=== PATIENT | female | born 1950 | race Caucasian/White ===

== ENCOUNTER 2016-09-18 09:22 | Emergency (ER) | payer OTHER ==
[~2016-09-18] VITALS: Ht 167.6 cm; Wt 103.0 kg
[~2016-09-18 09:22] MED LIST: ASPI-664 PO; CALC500T12 PO; CIPR500T4 PO; GABA300C16 PO; HYDR-3498 PO; IBUP-1542 PO; Levofloxacin PO; MECL-77 PO; OMEP20CA16 PO; PHEN-537 PO; PROP20TA4 PO; SUMA50TA3 PO; TAMS-14 PO; TAMS0.4C2 PO
[2016-09-18 09:27] VITALS: Ht 167.6 cm; Wt 103.0 kg
[2016-09-18] MEDS ORDERED: SOD CHLORIDE 0.9% 1,000 ML IV STA (09:58)
[2016-09-18] MEDS ORDERED: morphine 4 MG/ML VIAL IV STA (09:58)
[2016-09-18] MEDS ORDERED: ONDANSETRON 4 MG INJ IV STA (09:58)
[2016-09-18 10:31] LABS: BASOPHILS % 0.6 % (0.0-2.0); EOSINOPHILS # 0.1 10^3/ul (0.0-0.5); EOSINOPHILS % 1.7 % (0.0-7.0); HEMATOCRIT 44.4 % (37.0-47.0); HEMOGLOBIN 15.1 g/dl (12.0-16.0); LYMPHOCYTES # 1.8 10^3/ul (0.8-2.9); LYMPHOCYTES % 33.6 % (15.0-51.0); MEAN CORPUSCULAR HEMOGLOBIN 30.4 pg (29.0-33.0); MEAN CORPUSCULAR HGB CONC 34.1 g/dl (32.0-37.0); MEAN PLATELET VOLUME 9.7 fl (7.4-10.4); MONOCYTE # 0.6 10^3/ul (0.3-0.9); MONOCYTES % 11.7 % (0.0-11.0); NEUTROPHIL # 2.8 10^3/ul (1.6-7.5); NEUTROPHILS % 52.4 % (39.0-77.0); PLATELET COUNT 240 10^3/UL (140-440); RED BLOOD COUNT 4.99 10^6/ul (4.20-5.40); UNCORRECTED WBC 5.4 10^3/ul (4.8-10.8); WHITE BLOOD COUNT 5.4 10^3/ul (4.8-10.8)
[2016-09-18 10:33] LABS: CONDITION 1
[2016-09-18 10:36] LABS: ALBUMIN 4.4 g/dl (3.3-4.9)
[2016-09-18 10:37] LABS: POTASSIUM 3.4 mmol/L (3.5-5.1)
[2016-09-18 10:38] LABS: CREATININE 1.12 mg/dl (0.44-1.00)
[2016-09-18 10:39] LABS: ALBUMIN/GLOBULIN RATIO 1.37; BILIRUBIN,INDIRECT 0.4 mg/dl (0-1.1); BILIRUBIN,TOTAL 0.4 mg/dl (0.2-1.3); TOTAL PROTEIN 7.6 g/dl (6.1-8.1)
[2016-09-18 10:40] LABS: CALCIUM 9.5 mg/dl (8.4-10.2)
[2016-09-18] MEDS ORDERED: HYDROmorphONE 1 MG/ML SYG IV STA (11:53)
[2016-09-18] MEDS ORDERED: ONDA4TAB14 PO (13:39)
[2016-09-18] MEDS ORDERED: HYDR-902 PO (13:39)
[2016-09-18 13:52] VITALS: BP 126/80; PULSE 65; RESP 18
--- NOTE | 2016-09-18 13:57 | ERD ---
ER Documentation Chief Complaint Date/Time DATE: 09/18/16 TIME: 13:55 Chief Complaint VOMITING/DIARRHEA WITH ABD PAIN SINCE SUNDAY HPI Patient is a 66-year-old female with no medical problems who presents with abdominal pain and vomiting. The patient has had nausea, vomiting, and diarrhea for the past 3 days. She has diffuse abdominal pain. She is vomiting even water. She had fever on the first day but none recently. She has had no treatment as of yet. She said the pain is been constant. Upon review of old medical records this is the patient's fourth visit to the ER since 2014. Her primary doctor is Dr. Ordonez. ROS All systems reviewed and are negative except as per history of present illness. Medications Home Meds Active Scripts Ondansetron (Ondansetron Odt) 4 Mg Tab.rapdis, 4 MG PO Q6H Y for NAUSEA AND/OR VOMITING, #30 TAB Prov:MARY JO LAWS MD 09/18/16 Hydrocodone/Acetaminophen ([place] 10-325 Tablet) 1 Each Tablet, 1 TAB PO Q6H Y for PAIN, #7 TAB Prov:MARY JO LAWS MD 09/18/16 Tamsulosin Hcl* (Flomax*) 0.4 Mg Cap.er.24h, 0.4 MG PO QPM, #10 CAP Prov:KARLA CHÁVEZ DO 05/24/15 Ibuprofen* (Motrin*) 600 Mg Tab, 600 MG PO Q6, #30 TAB Prov:KARLA CHÁVEZ DO 05/24/15 Hydrocodone Bit-Acetaminophen* ([place]*) 5-325 Mg Tab, 1 TAB PO Q6 Y for PAIN, # 20 TAB Prov:KARLA CHÁVEZ DO 05/24/15 Reported Medications Aspirin* (Aspirin* EC) 81 Mg Tablet.dr, 81 MG PO DAILY, TAB 07/25/15 Meclizine Hcl* (Meclizine Hcl*) 25 Mg Tablet, 25 MG PO Q8H Y for VERTIGO, TAB 07/25/15 Calcium Carbonate* (Oysco-500*) 1 Tab Tablet, 1 TAB PO BID, TAB 07/25/15 Gabapentin* (Gabapentin*) 300 Mg Capsule, 300 MG PO BID, #60 CAP 07/25/15 Propranolol Hcl* (Propranolol Hcl*) 20 Mg Tablet, 20 MG PO DAILY, TAB 07/25/15 Omeprazole* (Omeprazole*) 20 Mg Capsule.dr, 20 MG PO DAILY, #30 CAP 07/25/15 Sumatriptan Succinate* (Sumatriptan Succinate*) 50 Mg Tablet, 50 MG PO BID Y for HEADACHE, TAB May repeat after 2 hours if needed; MAX 200 mg/24 hours 07/25/15 Discontinued Reported Medications Tamsulosin Hcl* (Tamsulosin Hcl*) 0.4 Mg Cap.er.24h, 0.4 MG PO DAILY, CAP 07/25/15 Discontinued Scripts Phenazopyridine Hcl* (Pyridium*) 100 Mg Tab, 100 MG PO TID Y for URINARY PAIN for 3 Days, #9 TAB 0 Refills Prov:LIDIA DENSON PA-C 03/11/16 Ciprofloxacin Hcl* (Ciprofloxacin Hcl*) 500 Mg Tablet, 500 MG PO BID for 7 Days , #14 TAB 0 Refills Prov:LIDIA DENSON PA-C 03/11/16 [Levofloxacin] 500 MG TAB No Conflict Check, 500 MG PO DAILY@06 for 7 Days, TAB Prov:REN JONES MD 07/29/15 Allergies Allergies: Coded Allergies: No Known Allergy (Unverified , 05/24/15) PMhx/Soc History of Surgery: Yes (gallstones removal 3 yers ago. removal of kidney stone ) Anesthesia Reaction: No Hx Neurological Disorder: No Hx Respiratory Disorders: No Hx Cardiac Disorders: No Hx Psychiatric Problems: No Hx Miscellaneous Medical Probl: No Hx Alcohol Use: No Hx Substance Use: No Hx Tobacco Use: No Smoking Status: Never smoker FmHx Family History: No diabetes Physical Exam Vitals Vital Signs Date Time Temp Pulse Resp B/P Pulse Ox O2 Delivery O2 Flow Rate FiO2 09/18/16 13:52 65 18 126/80 98 Room Air 09/18/16 12:40 63 19 136/78 98 Room Air 09/18/16 09:27 98.0 103 18 118/78 99 Physical Exam Const: Mild distress secondary to pain Head: Atraumatic Eyes: Normal Conjunctiva ENT: Normal External Ears, Nose and Mouth. Neck: Full range of motion..~ No meningismus. Resp: Clear to auscultation bilaterally Cardio: Regular rate and rhythm, no murmurs Abd: Soft, non tender, non distended. Normal bowel sounds Skin: No petechiae or rashes Back: No midline or flank tenderness Ext: No cyanosis, or edema Neur: Awake and alert Psych: Normal Mood and Affect Result Diagram: 09/18/16 1005 09/18/16 1005 Results 24 hrs Laboratory Tests Test 09/18/16 10:05 Alanine Aminotransferase (ALT/SGPT) 45IU/L Albumin 4.4g/dl Albumin/Globulin Ratio 1.37 Alkaline Phosphatase 66IU/L Anion Gap 19 Aspartate Amino Transf (AST/SGOT) 38IU/L Basophils # 0.010^3/ul Basophils % 0.6% Blood Urea Nitrogen 21mg/dl Calcium Level 9.5mg/dl Carbon Dioxide Level 23mmol/L Chloride Level 104mmol/L Creatinine 1.12mg/dl Direct Bilirubin 0.00mg/dl Eosinophils # 0.110^3/ul Eosinophils % 1.7% Globulin 3.20g/dl Glucose Level 112mg/dl Hematocrit 44.4% Hemoglobin 15.1g/dl Indirect Bilirubin 0.4mg/dl Lipase 37U/L Lymphocytes # 1.810^3/ul Lymphocytes % 33.6% Mean Corpuscular Hemoglobin 30.4pg Mean Corpuscular Hemoglobin Concent 34.1g/dl Mean Corpuscular Volume 89.0fl Mean Platelet Volume 9.7fl Monocytes # 0.610^3/ul Monocytes % 11.7% Neutrophils # 2.810^3/ul Neutrophils % 52.4% Nucleated Red Blood Cells # 0.010^3/ul Nucleated Red Blood Cells % 0.0/100WBC Platelet Count 23293^3/UL Potassium Level 3.4mmol/L Red Blood Count 4.9910^6/ul Red Cell Distribution Width 13.0% Sodium Level 143mmol/L Total Bilirubin 0.4mg/dl Total Protein 7.6g/dl White Blood Count 5.410^3/ul Current Medications Medications (Trade) Dose Ordered Sig/Libra Route PRN Reason Start Time Stop Time Status Last Admin Dose Admin Sodium Chloride (NS) 1,000 ml @ 1,000 mls/hr Q1H STAT IV 09/18/16 09:58 09/18/16 10:57 DC 09/18/16 10:19 Morphine Sulfate (morphine) 4 mg ONCE STAT IV 09/18/16 09:58 09/18/16 09:59 DC 09/18/16 10:18 Ondansetron HCl (Zofran Inj) 4 mg ONCE STAT IV 09/18/16 09:58 09/18/16 09:59 DC 09/18/16 10:18 Hydromorphone HCl (Dilaudid) 1 mg ONCE STAT IV 09/18/16 11:53 09/18/16 11:55 DC 09/18/16 11:59 Procedures/MDM Patient is a 66-year-old female with no medical problems who presents with abdominal pain along with vomiting and diarrhea. I believe her symptoms are most likely viral in nature. Laboratory studies are basically normal. Her abdominal exam is benign and there is no pain with palpation. At this point I doubt appendicitis, cholecystitis, pink otitis, or bowel obstruction. I believe outpatient management is appropriate. However the patient will need close follow-up with her primary doctor tomorrow morning for reevaluation. She can return sooner for any worsening symptoms. She will be given a prescription for [place] and Zofran for symptomatic relief. Departure Diagnosis: Primary Impression: Vomiting Vomiting type: unspecified Vomiting Intractability: non-intractable Nausea presence: with nausea Qualified Code: R11.2 - Non-intractable vomiting with nausea, unspecified vomiting type Additional Impression: Abdominal pain Abdominal location: generalized Qualified Code: R10.84 - Generalized abdominal pain Condition: Fair Patient Instructions: Abdominal Pain, Vomiting And Diarrhea, Nonspecific (Adult ) Additional Instructions: FOLLOW UP WITH YOUR PRIMARY CARE PHYSICIAN TOMORROW.Return to this facility if you are not improving as expected. MARY JO LAWS MD Sep 18, 2016 13:57
== END 2016-09-18 13:54 | disposition home or self-care (01) ==
LOC: E/R 09:22
DX: R11.2 Nausea with vomiting, unspecified (principal); R10.84 Generalized abdominal pain; Z79.82 Long term (current) use of aspirin
CPT/HCPCS: 36415; 80053; 83690; 85025; 87400; 96374; 96375; J1170; J2270; J2405; J7030; Z7502

== ENCOUNTER 2017-04-10 11:38 | Emergency (ER) | payer OTHER ==
[~2017-04-10] VITALS: Wt 111.0 kg
[~2017-04-10 11:38] MED LIST changes: -CIPR500T4 PO; +HYDR-902 PO; -Levofloxacin PO; +ONDA4TAB14 PO; -PHEN-537 PO; -TAMS0.4C2 PO
--- NOTE | 2017-04-10 13:15 | ERD ---
ER Documentation Chief Complaint Date/Time DATE: 04/10/17 TIME: 13:13 Chief Complaint back pain HPI 66-year-old female who presented with emergency department for lower back pain for 10 days. Pain got worse today. Stated that she has history of left-sided kidney stone. Denies headache, dizziness, neck pain, shoulder pain, chest pain , abdominal pain, nausea, vomiting, loss of bowel and bladder control, numbness or tingling sensation, trauma, recent travel, recent exposure to any illness, recent antibiotic use in the last 3 months, numbness or tingling sensation. No known drug allergies. Past medical history of left-sided kidney stone and chronic back pain. Surgical history: Stated that she had a laparoscopic procedure to remove a kidney stone. Social: Retired. Denies smoking, use of alcoholic beverages, use of illegal drugs. A 0. ROS All systems reviewed and are negative except as per history of present illness. Medications Home Meds Active Scripts Cyclobenzaprine Hcl* (Cyclobenzaprine Hcl*) 10 Mg Tablet, 10 MG PO Q12 Y for muscle spasms, #20 TAB Prov:PEG MORALES 04/10/17 Acetaminophen* (Tylophen*) 500 Mg Capsule, 1 CAP PO Q6H Y for PAIN AND OR ELEVATED TEMP, #20 CAP Prov:MADAYPEG HERNADEZ F 04/10/17 Cephalexin* (Keflex*) 500 Mg Capsule, 500 MG PO TID for 7 Days, CAP Prov:NESSAHUSSEINLIZETHRAVIN F 04/10/17 Ondansetron (Ondansetron Odt) 4 Mg Tab.rapdis, 4 MG PO Q6H Y for NAUSEA AND/OR VOMITING, #30 TAB Prov:MARY JO LAWS MD 09/18/16 Hydrocodone/Acetaminophen (Zenda 10-325 Tablet) 1 Each Tablet, 1 TAB PO Q6H Y for PAIN, #7 TAB Prov:MARY JO LAWS MD 09/18/16 Tamsulosin Hcl* (Flomax*) 0.4 Mg Cap.er.24h, 0.4 MG PO QPM, #10 CAP Prov:KARLA CHÁVEZ DO 05/24/15 Ibuprofen* (Motrin*) 600 Mg Tab, 600 MG PO Q6, #30 TAB Prov:KARLA CHÁVEZ DO 05/24/15 Hydrocodone Bit-Acetaminophen* (Zenda*) 5-325 Mg Tab, 1 TAB PO Q6 Y for PAIN, # 20 TAB Prov:KARLA CHÁVEZ DO 05/24/15 Reported Medications Aspirin* (Aspirin* EC) 81 Mg Tablet.dr, 81 MG PO DAILY, TAB 07/25/15 Meclizine Hcl* (Meclizine Hcl*) 25 Mg Tablet, 25 MG PO Q8H Y for VERTIGO, TAB 07/25/15 Calcium Carbonate* (Oysco-500*) 1 Tab Tablet, 1 TAB PO BID, TAB 07/25/15 Gabapentin* (Gabapentin*) 300 Mg Capsule, 300 MG PO BID, #60 CAP 07/25/15 Propranolol Hcl* (Propranolol Hcl*) 20 Mg Tablet, 20 MG PO DAILY, TAB 07/25/15 Omeprazole* (Omeprazole*) 20 Mg Capsule.dr, 20 MG PO DAILY, #30 CAP 07/25/15 Sumatriptan Succinate* (Sumatriptan Succinate*) 50 Mg Tablet, 50 MG PO BID Y for HEADACHE, TAB May repeat after 2 hours if needed; MAX 200 mg/24 hours 07/25/15 Allergies Allergies: Coded Allergies: No Known Allergy (Unverified , 05/24/15) PMhx/Soc History of Surgery: Yes (gallstones removal 3 yers ago. removal of kidney stone ) Anesthesia Reaction: No Hx Neurological Disorder: No Hx Respiratory Disorders: No Hx Cardiac Disorders: No Hx Psychiatric Problems: No Hx Miscellaneous Medical Probl: No Hx Alcohol Use: No Hx Substance Use: No Hx Tobacco Use: No Physical Exam Vitals Vital Signs Date Time Temp Pulse Resp B/P Pulse Ox O2 Delivery O2 Flow Rate FiO2 04/10/17 11:54 98.6 80 18 149/70 99 Physical Exam Const: [] Head: Atraumatic Eyes: Normal Conjunctiva ENT: Normal External Ears, Nose and Mouth. Neck: Full range of motion..~ No meningismus. Resp: Clear to auscultation bilaterally Cardio: Regular rate and rhythm, no murmurs Abd: Soft, non tender, non distended. Normal bowel sounds. Left lower abdominal pain to palpation. Skin: No petechiae or rashes Back: No midline or flank tenderness Ext: No cyanosis, or edema. C-spine/T-spine/L-spine are in midline with no tenderness, no swelling, no bulging, no discoloration. C-spine/T-spine/L-spine is good and full range of motion. Has left-sided CVA tenderness to palpation. Positive arms crossed straight leg test bilaterally. Neur: Awake and alert Psych: Normal Mood and Affect Result Diagram: 04/10/17 1325 04/10/17 1325 Results 24 hrs Laboratory Tests Test 04/10/17 13:25 04/10/17 13:53 White Blood Count 8.010^3/ul Red Blood Count 4.3510^6/ul Hemoglobin 13.4g/dl Hematocrit 40.1% Mean Corpuscular Volume 92.2fl Mean Corpuscular Hemoglobin 30.8pg Mean Corpuscular Hemoglobin Concent 33.4g/dl Red Cell Distribution Width 11.9% Platelet Count 21078^3/UL Mean Platelet Volume 10.8fl Neutrophils % 46.1% Lymphocytes % 42.9% Monocytes % 6.5% Eosinophils % 3.4% Basophils % 0.9% Nucleated Red Blood Cells % 0.0/100WBC Neutrophils # (Manual) 3.710^3/ul Lymphocytes # 3.410^3/ul Monocytes # 0.510^3/ul Eosinophils # 0.310^3/ul Basophils # 0.110^3/ul Nucleated Red Blood Cells # 0.010^3/ul Prothrombin Time 13.3Sec Prothrombin Time Ratio 1.0 INR International Normalized Ratio 1.01 Activated Partial Thromboplast Time 32.3Sec Sodium Level 146mmol/L Potassium Level 4.0mmol/L Chloride Level 111mmol/L Carbon Dioxide Level 24mmol/L Anion Gap 15 Blood Urea Nitrogen 19mg/dl Creatinine 0.78mg/dl Glucose Level 91mg/dl Calcium Level 9.4mg/dl Total Bilirubin 0.3mg/dl Direct Bilirubin 0.00mg/dl Indirect Bilirubin 0.3mg/dl Aspartate Amino Transf (AST/SGOT) 24IU/L Alanine Aminotransferase (ALT/SGPT) 39IU/L Alkaline Phosphatase 62IU/L Troponin I < 0.012ng/ml Total Protein 7.3g/dl Albumin 4.3g/dl Globulin 3.00g/dl Albumin/Globulin Ratio 1.43 Amylase Level 58U/L Lipase 41U/L Urine Color YELLOW Urine Clarity SLIGHTLY CLOUDY Urine pH 5.0 Urine Specific [place] 1.024 Urine Ketones NEGATIVEmg/dL Urine Nitrite POSITIVEmg/dL Urine Bilirubin NEGATIVEmg/dL Urine Urobilinogen NEGATIVEmg/dL Urine Leukocyte Esterase 3+Tod/ul Urine Microscopic RBC 4/HPF Urine Microscopic WBC 104/HPF Urine Squamous Epithelial Cells FEW/HPF Urine Bacteria MODERATE/HPF Urine Mucus MODERATE/HPF Urine Hemoglobin 1+mg/dL Urine Glucose NEGATIVEmg/dL Urine Total Protein NEGATIVEmg/dl Current Medications Medications (Trade) Dose Ordered Sig/Libra Route PRN Reason Start Time Stop Time Status Last Admin Dose Admin Acetaminophen/ Hydrocodone Bitart (Zenda (22)) 1 tab ONCE ONCE PO 04/10/17 13:30 04/10/17 13:31 DC 04/10/17 13:26 Procedures/MDM Examination: Please see physical examination. Disease process, medical treatment was explained to the patient and family member. They verbalized understanding and agreed with the diagnostic tests, medical treatment, and follow-up care. EKG: Normal sinus rhythm with a ventricular rate of 64 bpm. No evidence of acute myocardial infarction. No evidence of ischemia. Radiology: CT of the abdomen and pelvis without IV contrast. Impression:Mild fatty liver. Status post cholecystectomy. Blood works: Reviewed. Urinalysis: Urinary tract infection. Treatment: Zenda by mouth. Re-evaluation: Denies headache, dizziness, blurry vision, neck pain, shoulder pain, chest pain, back pain, abdominal pain, nausea, vomiting. No episode of emesis in the emergency department. Alert and oriented 4. Speaks full and clear sentences. Respirations even and unlabored. Lung sounds clear to auscultation. Active bowel sounds. There is no right upper/right lower/ epigastric/left upper/left lower abdominal tenderness and light and deep palpation. Negative on Rovsings sign. Negative Julia sign. No peritoneal signs. Ambulatory with steady gait. No neurovascular deficits. No neurological deficits. Consultation: None. Differential diagnosis: Acute myocardial infarction versus acute coronary syndrome versus powder a tunnel syndrome versus nephrolithiasis versus pyelonephritis versus pancreatitis versus cholelithiasis versus cholecystitis versus diverticulitis versus urinary tract infection versus flank pain versus abdominal pain versus sciatica versus chronic back pain versus musculoskeletal spasms Medical decision makin-year-old female who presented with emergency department for lower back pain for 10 days. Pain got worse today. Stated that she has history of left-sided kidney stone. Denies headache, dizziness, neck pain, shoulder pain, chest pain, abdominal pain, nausea, vomiting, loss of bowel and bladder control, numbness or tingling sensation, trauma, recent travel , recent exposure to any illness, recent antibiotic use in the last 3 months, numbness or tingling sensation. Patient's complaint, patient's history about her complaint, my physical findings, diagnostic test results, my reevaluation are consistent my final diagnosis of urinary tract infection, flank pain, musculoskeletal spasms. Medications prescribed are the following: Flexeril. Keflex. Tylenol. Patient and family member are made aware of the side effects and adverse reactions of the medications prescribed. Instructed on when to seek emergent and medical attention in case allergic/anaphylactic reactions or severe side effects and or adverse reactions to medications. Patient and family member verbalized understanding. Patient instructed Instructed to follow-up with his PCP in 24-48 hours. Instructed to Call 911 for chest pain, shortness of breath. Advised to come back here in ED as soon as possible for severity of symptoms which includes but not limited to: any new symptoms; shortness of breath/difficulty of breathing; cardiovascular changes; severe gastrointestinal symptoms; signs and symptoms of bleeding and or infection; signs of compartment syndrome/neurovascular changes; neurological changes/deficits. Patient and family member verbalized understanding. Upon discharge, patient is alert and oriented x 4, speaks full and clear sentences, denies pain, has no neurological deficits, has no neurovascular deficits, difficulty of breathing. Breathing even and unlabored. Lung sounds are clear to auscultation. Not in distress. Appears comfortable. Ambulatory with steady gait. Appears satisfied with care provided here in ED. Departure Diagnosis: Primary Impression: Back pain Additional Impressions: UTI (urinary tract infection) Muscle spasm Condition: Stable Additional Instructions: Instructed to follow-up with his PCP in 24-48 hours. Instructed to Call 911 for chest pain, shortness of breath. Advised to come back here in ED as soon as possible for severity of symptoms which includes but not limited to: any new symptoms; shortness of breath/difficulty of breathing; cardiovascular changes; severe gastrointestinal symptoms; signs and symptoms of bleeding and or infection; signs of compartment syndrome/neurovascular changes; neurological changes/deficits. Patient and family member verbalized understanding. PEG MORALES Apr 10, 2017 13:15
[2017-04-10] MEDS ORDERED: HYDROCODONE/APAP (10/325) TAB PO ONE (13:30)
[2017-04-10 13:43] LABS: BASOPHIL # 0.1 10^3/ul (0.0-0.1); BASOPHILS % 0.9 % (0.0-2.0); EOSINOPHILS # 0.3 10^3/ul (0.0-0.5); EOSINOPHILS % 3.4 % (0.0-7.0); HEMATOCRIT 40.1 % (37.0-47.0); HEMOGLOBIN 13.4 g/dl (12.0-16.0); LYMPHOCYTES # 3.4 10^3/ul (0.8-2.9); LYMPHOCYTES % 42.9 % (15.0-51.0); MEAN CORPUSCULAR HEMOGLOBIN 30.8 pg (29.0-33.0); MEAN CORPUSCULAR HGB CONC 33.4 g/dl (32.0-37.0); MEAN CORPUSCULAR VOLUME 92.2 fl (82.0-101.0); MEAN PLATELET VOLUME 10.8 fl (7.4-10.4); MONOCYTE # 0.5 10^3/ul (0.3-0.9); MONOCYTES % 6.5 % (0.0-11.0); NEUTROPHILS % 46.1 % (39.0-77.0); PLATELET COUNT 252 10^3/UL (140-415); RED BLOOD COUNT 4.35 10^6/ul (4.20-5.40); RED CELL DISTRIBUTION WIDTH 11.9 % (11.5-14.5)
[2017-04-10 13:59] LABS: INR 1.01; PROTIME 13.3 Sec (12.2-14.2)
[2017-04-10 14:00] LABS: PARTIAL THROMBOPLASTIN TIME 32.3 Sec (25.0-35.0)
--- NOTE | 2017-04-10 14:11 | RADRPT ---
PROCEDURE: CT abdomen and pelvis without IV contrast. CLINICAL INDICATION: Abdomen pain. TECHNIQUE: CT scan of the abdomen and pelvis was performed on a [address] scanner. The patient is scanned without IV contrast. Coronal and sagittal reformatted images were obtained from the axia l source images. Images were reviewed on a high-resolution PACS workstation. Total radiation dose: Total CTDIvol: 22.3 mGy. Total DLP: 1316 mGy-cm. One or more of the following dose reduction techniques were used: automated exposure control, adjustment of the mA and/or kV acc ording to patient size, or use of iterative reconstruction technique. COMPARISON: None available. FINDINGS: CT abdomen: The lung bases are clear. The heart is not enlarged without pericardial thickening or effusion. There is mild fatty liver. The liver is normal in size without focal hepatic mass or biliary dilata tion. The spleen is normal in size. The stomach is partially collapsed but is grossly unremarkable . The pancreas as visualized is normal. There is status post cholecystectomy and there is no evidence of biliary dilatation. The adrenal glands are symmetrical and normal. The kidneys are symmetrically normal bilaterally. N o renal obstructive uropathy or mass lesion is seen.. The aorta is normal in caliber. There is no retroperitoneal lymphadenopathy. The fabian hepatis reg ion is clear. The bowel and mesentery, as visualized, are equally unremarkable. CT pelvis: The appendix is normal in the right lower quadrant. The small bowel loops situated within the pelvi s are unremarkable. The female pelvic organs are normal. The pelvic sidewalls and inguinal regions are clear. No mass, lymphadenopathy is seen. No acute inflammation seen. The urinary bladder is normal. The surrounding osseous structures are unremarkable. No osteolytic or osteoblastic lesion is detect ed. IMPRESSION: 1. Mild fatty liver. 2. Status post cholecystectomy. RPTAT: GG .Nikolas Alejo MD, MD Date Time Electronically viewed and signed by .Nikolas Alejo MD, MD on 04/10/2017 14:11 .Y/
[2017-04-10 14:21] LABS: ADD UMIC YES; UR ASCORBIC ACID NEGATIVE (NEGATIVE); UR BACTERIA MODERATE /HPF (NONE SEEN); UR BILIRUBIN (Dip) NEGATIVE (NEGATIVE); UR BLOOD (Dip) 1+ mg/dL (NEGATIVE); UR CLARITY SLIGHTLY CLOUDY (CLEAR); UR COLOR YELLOW (YELLOW); UR GLUCOSE (Dip) NEGATIVE (NEGATIVE); UR KETONES (Dip) NEGATIVE (NEGATIVE); UR LEUKOCYTE ESTERASE (Dip) 3+ Leu/ul (NEGATIVE); UR MUCUS MODERATE /HPF (NONE SEEN); UR NITRITE (Dip) POSITIVE (NEGATIVE); UR RBC 4 /HPF (0-5); UR SPECIFIC GRAVITY (Dip) 1.024 (1.003-1.030); UR SQUAMOUS EPITHELIAL CELL FEW /HPF (FEW); UR TOTAL PROTEIN (Dip) NEGATIVE (NEGATIVE); UR UROBILINOGEN (Dip) NEGATIVE (NEGATIVE)
[2017-04-10 14:27] LABS: ALANINE AMINOTRANSFERASE 39 IU/L (13-69); ALBUMIN 4.3 g/dl (3.3-4.9); ALBUMIN/GLOBULIN RATIO 1.43; ALKALINE PHOSPHATASE 62 IU/L (42-121); AMYLASE 58 U/L (11-123); ANION GAP 15 (8-16); ASPARTATE AMINO TRANSFERASE 24 IU/L (15-46); BILIRUBIN,INDIRECT 0.3 mg/dl (0-1.1); BILIRUBIN,TOTAL 0.3 mg/dl (0.2-1.3); BLOOD UREA NITROGEN 19 mg/dl (7-20); CALCIUM 9.4 mg/dl (8.4-10.2); CARBON DIOXIDE 24 mmol/L (21-31); CHLORIDE 111 mmol/L (97-110); GLUCOSE 91 mg/dl (70-220); SODIUM 146 mmol/L (135-144); TOTAL PROTEIN 7.3 g/dl (6.1-8.1)
[2017-04-10 14:46] LABS: TROPONIN-I < 0.012 ng/ml (0.00-0.12)
[2017-04-10] MEDS ORDERED: CEPH-443 PO (15:03)
[2017-04-10] MEDS ORDERED: ACET500C5 PO (15:03)
[2017-04-10] MEDS ORDERED: CYCL-319 PO (15:04)
[2017-04-10 15:25] LABS: CREATININE 0.78 mg/dl (0.44-1.00)
== END 2017-04-10 15:47 | disposition home or self-care (01) ==
LOC: FTE 11:38
DX: M54.5 Low back pain (principal); N39.0 Urinary tract infection, site not specified; M62.830 Muscle spasm of back; R10.9 Unspecified abdominal pain; Z79.82 Long term (current) use of aspirin
CPT/HCPCS: 74176; 80053; 81001; 82150; 83690; 84484; 85025; 85610; 85730; 93005; Z7502; Z7610